=== PATIENT | male | born 1940 | race African-American/Black ===

== ENCOUNTER 2019-05-02 11:35 | Inpatient (IN) | payer OTHER ==
[~2019-05-02] VITALS: Ht 182.9 cm; Wt 78.2 kg
[2019-05-02 11:35] VITALS: BP_SYST 147
--- NOTE | 2019-05-02 11:35 | NUR ---
BROUGHT IN BY [facility], PLACED IN BED #1 AND TRIAGED.REPORT GIVEN TO ELIZABETH
--- NOTE | 2019-05-02 11:55 | NUR ---
PATIENT CAME IN FROM [facility]. PATIENT SHARMIN IN FOR LOW HGB AT 7.5. PATIENT DENEIS PAIN. PATIENT STATES HE GETS DIZZY SOME TIMES WHEN MOVED FAST. PATIENT ALERT AND ORIENTED X3. PATIENT HAS HISTORY OF CVA WITH LEFT SIDED WEAKNESS. PAIENT HAS POND HANGING TO GRAVITY. PATIENT DENIES SOB AND NAUSEA AND VOMITING.
[2019-05-02] MEDS ORDERED: NACL 0.9% 1,000 ML IV ONE (12:00)
[2019-05-02] MEDS ORDERED: NACL 0.9% 1,000 ML IV SCH (12:00)
--- NOTE | 2019-05-02 12:05 | NUR ---
PATIENT GETTING X RAY IN BED.
[2019-05-02 12:44] LABS: BASOPHILS % (AUTO) 0.3 % (0.0-2.0); EOSINOPHILS # (AUTO) 0.2 K/uL (0.0-0.4); EOSINOPHILS % (AUTO) 1.8 % (0.0-4.0); HEMATOCRIT 25.4 % (36-54); HEMOGLOBIN 8.4 g/dL (14.0-18.0); LYMPHOCYTES # (AUTO) 6.1 K/uL (1.0-5.5); LYMPHOCYTES % (AUTO) 56.1 % (20.5-51.5); MEAN CORPUSCULAR HEMOGLOBIN 30 pg (27-31); MEAN CORPUSCULAR HGB CONC 33 % (32-36); MEAN CORPUSCULAR VOLUME 92 fL (79.0-98.0); MONOCYTES # (AUTO) 0.8 K/uL (0.0-1.0); MONOCYTES % (AUTO) 7.6 % (1.7-9.3); NEUTROPHILS # (AUTO) 3.7 K/uL (1.8-7.7); PLATELET COUNT (AUTO) 295 K/uL (130-430); RED BLOOD CELL COUNT(AUTO) 2.76 MIL/uL (4.2-6.2); RED CELL DISTRIBUTION WIDTH 18.2 % (9.0-15.0); WHITE BLOOD COUNT (AUTO) 10.8 K/uL (4.8-10.8)
[2019-05-02 12:56] LABS: ANION GAP 7 (5-15); CALCIUM 9.8 mg/dL (8.4-11.0); CHLORIDE 104 mmol/L (98-107); CREATININE 2.15 mg/dL (0.55-1.30); GLUCOSE 113 mg/dL (70-99); POTASSIUM 3.9 mmol/L (3.5-5.1); SODIUM SERUM 133 mmol/L (136-145); UREA NITROGEN, BLOOD 38 mg/dL (8-21)
[2019-05-02 12:57] LABS: NEUTROPHILS % (AUTO) 34.2 % (40.0-70.0)
[2019-05-02 13:00] LABS: INR 1.1 (0.80-1.20); PROTHROMBIN TIME 11.5 SECS (9.5-12.5)
[2019-05-02 13:04] LABS: ALANINE AMINOTRANSFERASE 17 U/L (12-78); ALBUMIN 2.3 g/dL (3.4-4.8); ASPARTATE AMINOTRANSFERASE 26 U/L (10-37); TOTAL BILIRUBIN 0.6 mg/dL (0.0-1.0)
--- NOTE | 2019-05-02 13:05 | NUR ---
PATIENT DRN PER ALIDA THAT WAS SENT WITH PATIENT FROM FACILITY.
--- NOTE | 2019-05-02 13:12 | NUR ---
PATIENT REFUSING CATHETER CHANGE BECAUSE PATIENT STATES "IT WAS JUST CHANGED." CALLED FACILITY AND JARED NURSE STATES IT WAS CHANGED 2 DAYS.
[2019-05-02] MEDS ORDERED: DARB60VI IJ (13:28)
[2019-05-02] MEDS ORDERED: DIVA250T PO (13:28)
[2019-05-02] MEDS ORDERED: ACET325T53 PO (13:28)
[2019-05-02] MEDS ORDERED: TRAMADOL PO (13:28)
[2019-05-02] MEDS ORDERED: RIVA15TA PO (13:28)
[2019-05-02] MEDS ORDERED: METO-540 PO (13:28)
[2019-05-02] MEDS ORDERED: SSREG SUBCUT (13:28)
[2019-05-02] MEDS ORDERED: DOCU-144 PO (13:28)
[2019-05-02] MEDS ORDERED: HYDR-3917 PO (13:28)
[2019-05-02] MEDS ORDERED: FERR140T2 PO (13:28)
[2019-05-02] MEDS ORDERED: VITA1CAP PO (13:28)
[2019-05-02] MEDS ORDERED: NOR10 PO (13:28)
[2019-05-02] MEDS ORDERED: LORA-259 PO (13:28)
--- NOTE | 2019-05-02 13:28 | NUR ---
Medication reconciliation completed with information provided by [facility]. Any prior medication reconciliation on file was reviewed and corrected.
--- NOTE | 2019-05-02 14:48 | NUR ---
# 20 gauge angiocath placed to RIGHT FOOT AFTER MULTIPLE ATTEMPTS FROM RN'S. Use of asceptic technique. Opsite placed over site. Blood return noted. Blood for lab drawn from site. Flushed with 10 cc of normal saline. No evidence of infiltration noted. Patient tolerated well.
--- NOTE | 2019-05-02 15:40 | NUR ---
DR GONSALES AT BEDSIDE FOR EVALUATION
--- NOTE | 2019-05-02 17:10 | NUR ---
PATIENT RESTING IN BED WITH NO SIGNS OF DISTRESS. PATIENT GETTING ANXIOUS AND WANTS TO BE ADMITTED. WAITING FOR DR TO CALL BACK FOR ORDERS. WILL CONTINUE TO MONITOR.
--- NOTE | 2019-05-02 17:46 | NUR ---
Patient will be admitted to care of DR TSANG. Admitted to TELE unit. Belongings list completed. Summary report printed. Report will be given at bedside.
--- NOTE | 2019-05-02 17:50 | NUR ---
WAITING FOR TELE TO GIVE BED SO PATIENT CAN BE TRANSFERED.
--- NOTE | 2019-05-02 18:11 | NUR ---
Transfer to TELE via ACLS protocol. Licensed nurse present. IV present no signs or symptoms of infiltration.
--- NOTE | 2019-05-02 18:20 | NUR ---
REPORT GIVEN TO ROSALIA ESPINAL ON TELE.
--- NOTE | 2019-05-02 18:25 | NUR ---
Admission Note Received patient from ER with diagnosis of ANEMIA, KIDNEY FAILURE, R/O GI BLEED.. Initial Plan of Care discussed-patient verbalized understanding. Family at bedside. Oriented to room, call light, pain management and safety.
--- NOTE | 2019-05-02 18:42 | NUR ---
Initial Note-Received pt from ER. Pt is confused. IV bolus running on right foot. Pt has weakness on left side. Will endorse pt care to oncoming shift mechanic
--- NOTE | 2019-05-02 19:37 | NUR ---
CONSULTATION PAGED/CALLED Reason for Consultation:ELEVATED TROP Person Who was Notified: MAIRA Consulting Physician: DR. DE LEON Continuity Editor Specialty: Ordering Physician: DR. TSANG
--- NOTE | 2019-05-02 19:44 | NUR ---
CONSULTATION PAGED/CALLED Reason for Consultation: R/O GI BLEED Person Who was Notified: WEI Consulting Physician: DR SALEH. (DR. GARCIA IS LEAD RIDER ) Drier Tender Specialty: Ordering Physician: DR. TSANG
[2019-05-02 20:08] VITALS: BP_SYST 152
[2019-05-02 20:15] VITALS: BP_SYST 145
[2019-05-02] MEDS: 0.45% NACL 1,000 ML IV SCH (20:23)
--- NOTE | 2019-05-02 20:23 | NUR ---
IVF PATIENT STARTED ON IVF ORDERED. IV LINE INTACT ON RT FOOT. PENILE SHAFT WOUND AND SACRAL/BUTTOCKS EXCORIATION PICTURE TAKEN AND RECORDED. VITAL SIGNS STABLE. PATIENT INSTRUCTED OF CALL LIGHT USE. BED IN LOWEST LOCKED POSITION WITH ALARM ON.
--- NOTE | 2019-05-02 20:52 | NUR ---
PAGED: PAGED DR. TSANG REGARDING ORDERS. SPOKE WITH WALESKA.
[2019-05-02] MEDS ORDERED: ACETAMINOPHEN 325 MG TABLET PO PRN (21:45)
--- NOTE | 2019-05-02 23:40 | NUR ---
GI CONSULT DR. GARCIA CALLED BACK FOR GI CONSULT. ORDERED TO KEEP PATIENT NPO AFTER MIDNIGHT.
[2019-05-03 00:17] VITALS: BP_SYST 150
--- NOTE | 2019-05-03 00:50 | NUR ---
ROUNDS PATIENT RESTING IN BED. BREATHING UNLABORED. IVF INFUSING. CALL LIGHT WITH IN REACH.
--- NOTE | 2019-05-03 01:45 | NUR ---
CONSULTATION PAGED/CALLED Reason for Consultation: PENILE WOUND Person Who was Notified: JOSE Consulting Physician: DR. KELLER Tombstone Polisher Specialty: ID Ordering Physician: DR. TSANG
--- NOTE | 2019-05-03 03:00 | NUR ---
ID CONSULT DR. LAQUITA KELLER MAKING ROUNDS FOR ID CONSULT WITH ORDERS MADE NOTED AND CARRIED OUT.
[2019-05-03] MEDS ORDERED: ACETAMINOPHEN 325 MG TABLET PO PRN (03:45)
[2019-05-03] MEDS ORDERED: LORazepam 1 MG TABLET PO PRN (03:45)
[2019-05-03] MEDS ORDERED: traMADol HCL HCL 50 MG TABLET (ULTRAM) PO PRN (03:45)
[2019-05-03] MEDS ORDERED: INSULIN REGULAR, HUMAN 100 UNITS/ML, 10 ML VIAL (humuLIN R) SUBCUT PRN ×2 (03:45→04:00)
--- NOTE | 2019-05-03 06:06 | NUR ---
BLOOD SUGAR PATIENT BLOOD SUGAR 78. MILK WITH PACKETS OF SUGAR GIVEN TOLERATED.
--- NOTE | 2019-05-03 06:43 | NUR ---
CLOSING NOTES PATIENT RESTING IN BED. NO C/O PAIN AT THIS TIME. URINE SPECIMEN SEND TO LAB FOR UA &C/S. PATIENT NEEDS ATTENDED. IVF INFUSING WITH IV LINE INTACT. BED IN LOWEST LOCKED POSITION WITH ALARM ON. CALL LIGHT WITH IN REACH.
[2019-05-03 07:19] LABS: BILIRUBIN,URINE NEGATIVE (NEGATIVE); BLOOD, URINE 2+ (NEGATIVE); CLARITY/URINE HAZY (CLEAR); COLOR,URINE YELLOW (YELLOW); GLUCOSE,URINE NEGATIVE (NEGATIVE); KETONES,URINE NEGATIVE (NEGATIVE); LEUKOCYTE ESTERASE ,URINE 3+ (NEGATIVE); NITRITE, URINE POSITIVE (NEGATIVE); PROTEIN URINE 2+ (NEGATIVE); UROBILINOGEN,URINE 0.2 (0.2-1.0)
[2019-05-03] MEDS ORDERED: DEXTROSE 50%-WATER 50 ML DISP.SYRIN IVP PRN (07:30)
[2019-05-03] MEDS ORDERED: GLUCOSE 15 GM GEL (in 37.5 GM TUBE) PO PRN (07:30)
[2019-05-03] MEDS ORDERED: D5W 1,000 ML IV PRN (07:30)
[2019-05-03 08:00] VITALS: BP_SYST 120
--- NOTE | 2019-05-03 08:00 | NUR ---
Patient is A/Ox4. With F/C draining yellow urine. IV on the right leg, #20. SR on monitor. Call light in place, bed locked at the lowest position, will continue to monitor.
[2019-05-03 08:03] LABS: BACTERIA,URINE MANY /HPF (None Seen); WBC,URINE >100 /HPF (0-3)
[2019-05-03 08:37] LABS: BASOPHILS % (AUTO) 0.3 % (0.0-2.0); EOSINOPHILS # (AUTO) 0.2 K/uL (0.0-0.4); HEMATOCRIT 22.8 % (36-54); HEMOGLOBIN 7.7 g/dL (14.0-18.0); LYMPHOCYTES # (AUTO) 5.6 K/uL (1.0-5.5); LYMPHOCYTES % (AUTO) 52.5 % (20.5-51.5); MEAN CORPUSCULAR HEMOGLOBIN 31 pg (27-31); MEAN CORPUSCULAR HGB CONC 34 % (32-36); MEAN CORPUSCULAR VOLUME 92 fL (79.0-98.0); MONOCYTES # (AUTO) 0.7 K/uL (0.0-1.0); MONOCYTES % (AUTO) 6.7 % (1.7-9.3); NEUTROPHILS # (AUTO) 4.1 K/uL (1.8-7.7); PLATELET COUNT (AUTO) 263 K/uL (130-430); RED BLOOD CELL COUNT(AUTO) 2.48 MIL/uL (4.2-6.2); RED CELL DISTRIBUTION WIDTH 19.4 % (9.0-15.0); WHITE BLOOD COUNT (AUTO) 10.7 K/uL (4.8-10.8)
[2019-05-03 08:43] LABS: NEUTROPHILS % (AUTO) 38.5 % (40.0-70.0)
[2019-05-03 08:44] LABS: ANION GAP 4 (5-15); CALCIUM 9.6 mg/dL (8.4-11.0); CHLORIDE 108 mmol/L (98-107); CREATININE 2.05 mg/dL (0.55-1.30); GLUCOSE 99 mg/dL (70-99); POTASSIUM 3.8 mmol/L (3.5-5.1); SODIUM SERUM 135 mmol/L (136-145); UREA NITROGEN, BLOOD 34 mg/dL (8-21)
[2019-05-03 08:53] LABS: HDL CHOLESTEROL 39 mg/dL (>45); LDL CHOLESTEROL 63 mg/dL (<100); TRIGLYCERIDES 95 mg/dL (30-150)
[2019-05-03 08:59] LABS: ALANINE AMINOTRANSFERASE 23 U/L (12-78); ALBUMIN 2.1 g/dL (3.4-4.8); THYROID STIMULATING HORMONE 2.67 uIu/mL (0.36-3.74); TOTAL BILIRUBIN 0.7 mg/dL (0.0-1.0)
[2019-05-03] MEDS: DOCUSATE SODIUM 100 MG CAPSULE PO SCH ×2 (09:00→21:16)
[2019-05-03] MEDS: amLODIPine BESYLATE 10 MG TABLET PO SCH (09:00)
[2019-05-03] MEDS: VITAMIN B COMPLEX 1 CAP/TAB PO SCH (09:00)
[2019-05-03] MEDS: FERROUS SULFATE 325 MG TABLET.DR PO SCH ×3 (09:00→21:16)
[2019-05-03] MEDS: DIVALPROEX SODIUM 125 MG CAP.(DEPAKOTE SPRINKLE) PO SCH ×2 (09:00→21:16)
[2019-05-03] MEDS: RIVAROXABAN 15 MG TABLET PO SCH (09:00)
[2019-05-03 09:04] LABS: ASPARTATE AMINOTRANSFERASE 41 U/L (10-37)
[2019-05-03 09:05] LABS: CHOLESTEROL 118 mg/dL (<200)
--- NOTE | 2019-05-03 09:50 | NUR ---
Nutrition Update Jose J Scale 14 noted. Pt admitted for anemia, r/o GI bleed, renal failure. Diet: NPO + 2 gm Na + CCHO (3 active, separate diet orders) BMI: 23.1 kg/m2 RD to follow per nutrition care standards.
--- NOTE | 2019-05-03 10:40 | NUR ---
CONSULTATION PAGED/CALLED Reason for Consultation: ELEVATED TROPONIN Person Who was Notified: SPOKE TO Consulting Physician: Switchboard Operator Receptionist Specialty: CARDIO Ordering Physician:
--- NOTE | 2019-05-03 12:00 | NUR ---
BS 82. No coverage is needed.
[2019-05-03] MEDS ORDERED: PANTOPRAZOLE SODIUM 40 MG TAB PO ONE (12:15)
[2019-05-03 12:38] VITALS: BP_SYST 145
--- NOTE | 2019-05-03 12:42 | NUR ---
Patient begins blood transfusion BT INITIATION: Consent signed by patient agreeing to administration of blood. Blood has been type and crossmatched. Blood sent from blood bank. Information on unit of blood checked against patient wristband at bedside by two nurses. All information matches. Patient or responsible republican informed of potential complications associated with blood transfusion. Informed of possible transfusion reaction symptoms. Aware of need to notify nurse at once of itching, shortness of breath, flushing, feeling of impending doom, or other symptoms not previously present. Vital signs taken within 5 minutes prior to initiation of transfusion. RN will remain with patient for first 15 minutes of transfusion at which time vital signs will be re-assessed.
[2019-05-03] MEDS ORDERED: LEVOFLOXACIN 250 MG TABLET PO ONE (14:15)
[2019-05-03] MEDS ORDERED: FUROSEMIDE 40 MG/4 ML VIAL IVP ONE (14:30)
[2019-05-03] MEDS: METOPROLOL SUCCINATE 25 MG TAB.SR.24H (TOPROL XL) PO SCH (14:42)
--- NOTE | 2019-05-03 14:48 | NUR ---
Dietitian Recommendations * Recommend continuing full liquid diet (ONS Ensure Enlive TID comes standard w/ full liquid diets; provides additional 1050 kcal/day, 60 gm protein/day) * Encourage PO intake. * Consider advance to CCHO, 2gm sodium diet if/when medically appropriate. MIRTHA, Lead Technical Architect Please refer to Nutrition Assessment for details. Signed: 05/03/19 at 1449 by Anneliese BENZ <Co-Signature Required> Co-Signed: 05/03/19 at [address] Addendum: 05/03/19 at 1449 by Anneliese BENZ Amended: Links added.
--- NOTE | 2019-05-03 15:40 | NUR ---
Blood transfusion completed. Patient is in no signs of distress, V/S is stable.
--- NOTE | 2019-05-03 15:45 | NUR ---
BT INITIATION: Consent signed per PATIENT agreeing to administration of blood. Blood has been type and crossmatched. Blood sent from blood bank. Information on unit of blood checked against patient wristband at bedside by two nurses. All information matches. Patient or responsible alliance party informed of potential complications associated with blood transfusion. Informed of possible transfusion reaction symptoms. Aware of need to notify nurse at once of itching, shortness of breath, flushing, feeling of impending doom, or other symptoms not previously present. Vital signs taken within 5 minutes prior to initiation of transfusion. RN will remain with patient for first 15 minutes of transfusion at which time vital signs will be re-assessed.
[2019-05-03 16:00] VITALS: BP_SYST 156
--- NOTE | 2019-05-03 16:00 | NUR ---
PATIENT IS TOLERATING BLOOD TRANSFUSION WITHOUT DISTRESS. WILL CONTINUE TO MONITOR. V/S IS STABLE.
--- NOTE | 2019-05-03 17:49 | NUR ---
WOUND EVALUATION: Wound Consult received from Dr. Monteiro. Thank you, Dr. Monteiro, for the consult. Patient received in a Jacinda Bed, awake, alert, and oriented. Patient is unable to turn independently. Jose J Score is a 14. Past Medical History: cancer, diabetes, hypertension. Recent Labs: WBC 10.7, RBC 2.48, Hgb 7.7, Hct 22.8, albumin 2.1, BUN 34, Creatinine 2.05. Microbiology: urine culture pending, MRSA screen pending. Intrinsic factors that delay wound healing: hypertension, diabetes. Extrinsic factors that delay wound healing: limited mobility. Wound Assessment: 1. Sacrum Incontinence-associated dermatitis with small opening, present on admission. Opening is 100% red. No odor, no drainage. Victoria-wound intact, dry, flaky. Open area measures 0.3 cm x 0.2 cm. 2. Bilateral Buttocks Incontinence-associated dermatitis. No odor, no drainage. Victoria-wound intact with dry scaly skin. Recommend: Cleanse areas with mild soap and water. Place moisture barrier cream onto buttocks and sacrum. Apply hydrogel to open areas not covered by moisture barrier cream. Cover with foam dressing. Perform wound care daily, and as needed for dressing soiling or dislodgement. Also recommend: Reposition patient every 2 hours with pillow support and off-load pressure areas with pillows for pressure re-distribution. Offload, elevate and float bilateral heels with pillows. Perform skin care and monitor skin integrity Q shift. Use moisture barrier cream on buttocks and other moisture susceptible areas QID and as needed for soiling. Place patient on a low air-loss mattress.
[2019-05-03 19:00] VITALS: BP_SYST 148
--- NOTE | 2019-05-03 19:00 | NUR ---
BLOOD TRANSFUSION IS COMPLETED. PATIENT TOLERATED WITHOUT DISTRESS. REPORT IS ALSO GIVEN AT BEDSIDE TO THE ONCOMING SHIFT.
--- NOTE | 2019-05-03 19:15 | NUR ---
change of shift.pt.presents blood transfusion;2/2 units in progress.pt's iv access;location;rt.foot.iv access assessment; intact;patent;absent infiltration/inflammation.pt.presents akhtar catheter;intact;patent;urine content present.pt.presents quiescent affect;calm,arousable.call light/telephone w/in reach of the pt.
[2019-05-03 20:00] VITALS: BP_SYST 148
--- NOTE | 2019-05-03 20:00 | NUR ---
pt.assessed.v/s assessed.values w/in normal limits.pt.presents quiescent affect;calm.no c/o pain,nausea.i have assessed the iv access;intact;patent:absent infiltration/inflammation.the post blood transfusion:ns-flush infusing.i have assessed the akhtar catheter;intact;patent;urine content present.pt.assessed for cleanliness.pt.repositioned.general status stable.respiratory status stale.i have apprised the pt.that i may provide snacks /beverages w/in the shift.no requests posited @this hour.call light/ telephone placed w/in reach of the pt.
--- NOTE | 2019-05-03 20:30 | NUR ---
i have assessed the blood glucose;value;121mg/dl.i have apprised the pt.of the value.
--- NOTE | 2019-05-03 21:00 | NUR ---
2100p medications administered.pt.capable to consume medications whole.i have noted the pt.is receiving the administration:goyo.seizure precautions noted and placed;bed side rails padded applied. Addendum: 05/04/19 at 0348 by Jemal Phillips RN i have removed the post blood transfusion ns-flush.i have changed the iv fluids bag;continued w/the maintanance iv fluids;45ns.
[2019-05-03] MEDS: 0.45% NACL 1,000 ML IV SCH ×2 (21:15→21:27)
--- NOTE | 2019-05-03 22:00 | NUR ---
pt.assessed.pt.present quiescent affect;calm,somnolent.pt.assessed for cleanliness.pt.repositioned.iv access intact;patent;iv fluids infusing. akhtar catheter intact;patent;urine content present.general status stable.respiratory status stable;unlabored.call light/telephone placed w/in the reach of the pt.
--- NOTE | 2019-05-03 22:30 | NUR ---
i have collected the urine sample;sent to the lab.
--- NOTE | 2019-05-04 | NUR ---
pt.assessed.v/s assessed;value w/in normal limits.pt.presents quiescent affect;calm,somnolent.pt.assessed for cleanliness.pt.repositioned.iv access:intact;patent;iv fluids infusing. akhtar catheter assessed;intact;patent;urine content presents general status stable.respiratory status stable.call light/telephone placed w/in reach of the pt.
[2019-05-04 00:51] VITALS: BP_SYST 155
--- NOTE | 2019-05-04 00:52 | NUR ---
paged paged for Dr Doc Sr, dialed . s/w Gwen.
--- NOTE | 2019-05-04 02:00 | NUR ---
pt.assessed.pt.presents quiescent affect;calm,somnolent.pt.assessed for cleanliness.pt.repositioned.iv access;intact;patent; iv fluids infusing. akhtar catheter assessed;intact;patent;urine content present.general status stable.respiratory status stable.call light/telephone placed w/in reach of the pt.
--- NOTE | 2019-05-04 04:00 | NUR ---
pt.assessed.pt.presents quiescent affect;calm,somnolent.iv access;intact;patent absent infiltration.inflammation.iv fluids infusing. akhtar catheter intact;patent;urine content present.general status stable.respiratory status stable;unlabored.pt.assessed for cleanliness.pt.repositioned.call light/telephone placed w/in reach of the pt.
--- NOTE | 2019-05-04 06:35 | NUR ---
pt.assessed.pt.was to submit to lab draws this am;pt.refused.i conveyed to the pt.the necessity for the lab values.pt.refused. blood glucose attempt was refused per the pt.to convey to md in am.pt.assessed for cleanliness.pt.repositioned.i v fluids intact; patent.absent infiltration/inflammation.akhtar catheter intact;patent;urine content present.pt.assessed for cleanliness.pt. repositioned.call light/telephone placed w/in reach of the pt.
--- NOTE | 2019-05-04 07:52 | NUR ---
OPENING NOTE RECEIVED PATIENT FROM COBBLER SOLE. PATIENT AWAKE IN BED. A/OX3. ROOM AIR. NO ACUTE DISTRESS. NO SOB. RESPIRATION EVEN AND UNLABORED. SKIN WARM AND DRY TO TOUCH. IV INTACT AND PATENT TO RIGHT FOOT; NO REDNESS/INFILTRATION NOTED. ANNALISA IVF ORDERED. POND CATH INTACT AND PATENT DRAINING YELLOW URINE. DISCUSSED PLAN OF CARE. ENCOURAGED PATIENT TO ALLOW SALES OPERATIONS MANAGER TO DO A BLOOD DRAW DUE TO HIGH TROPONIN; PATIENT STILL REFUSED AND WILL ATTEMPT AGAIN. BED IN LOW AND LOCKED POSITION. SIDERAIL UPX2. BED ALARM ON. CALL LIGHT IN REACH. CONT TO MONITOR PATIENT SEEN AND EXAMINED BY AT BEDSIDE
[2019-05-04 08:00] VITALS: BP_SYST 154
[2019-05-04] MEDS: PANTOPRAZOLE SODIUM 40 MG TAB PO SCH (08:19)
[2019-05-04] MEDS: FERROUS SULFATE 325 MG TABLET.DR PO SCH ×3 (08:19→20:50)
[2019-05-04] MEDS: DIVALPROEX SODIUM 125 MG CAP.(DEPAKOTE SPRINKLE) PO SCH ×3 (08:19→21:00)
[2019-05-04] MEDS: VITAMIN B COMPLEX 1 CAP/TAB PO SCH (08:19)
[2019-05-04] MEDS: FUROSEMIDE 40 MG/4 ML VIAL IVP SCH (08:19)
[2019-05-04] MEDS: METOPROLOL SUCCINATE 25 MG TAB.SR.24H (TOPROL XL) PO SCH (08:20)
[2019-05-04] MEDS: DOCUSATE SODIUM 100 MG CAPSULE PO SCH ×2 (08:20→20:49)
[2019-05-04] MEDS: amLODIPine BESYLATE 10 MG TABLET PO SCH (08:20)
[2019-05-04] MEDS: RIVAROXABAN 15 MG TABLET PO SCH (08:21)
[2019-05-04 08:33] LABS: BASOPHILS % (AUTO) 0.2 % (0.0-2.0); EOSINOPHILS # (AUTO) 0.2 K/uL (0.0-0.4); EOSINOPHILS % (AUTO) 1.7 % (0.0-4.0); HEMATOCRIT 30.6 % (36-54); HEMOGLOBIN 10.2 g/dL (14.0-18.0); LYMPHOCYTES # (AUTO) 5.1 K/uL (1.0-5.5); LYMPHOCYTES % (AUTO) 50.7 % (20.5-51.5); MEAN CORPUSCULAR HEMOGLOBIN 30 pg (27-31); MEAN CORPUSCULAR HGB CONC 33 % (32-36); MEAN CORPUSCULAR VOLUME 90 fL (79.0-98.0); MONOCYTES # (AUTO) 0.8 K/uL (0.0-1.0); MONOCYTES % (AUTO) 7.6 % (1.7-9.3); NEUTROPHILS % (AUTO) 39.8 % (40.0-70.0); PLATELET COUNT (AUTO) 231 K/uL (130-430); RED BLOOD CELL COUNT(AUTO) 3.42 MIL/uL (4.2-6.2); WHITE BLOOD COUNT (AUTO) 10.2 K/uL (4.8-10.8)
--- NOTE | 2019-05-04 08:33 | NUR ---
meds ALL DUE MEDS ADMINISTERED ORDERED; ANNALISA WELL. TEACHING FOR MEDICATION AND ASE DONE. ALL NEEDS MET. CONT TO MONITOR. CALL LIGHT IN REACH
[2019-05-04 08:35] LABS: ANION GAP 7 (5-15); CALCIUM 9.6 mg/dL (8.4-11.0); CHLORIDE 106 mmol/L (98-107); CREATININE 1.99 mg/dL (0.55-1.30); GLUCOSE 84 mg/dL (70-99); POTASSIUM 4.1 mmol/L (3.5-5.1); SODIUM SERUM 136 mmol/L (136-145); UREA NITROGEN, BLOOD 34 mg/dL (8-21)
[2019-05-04 08:43] LABS: ALANINE AMINOTRANSFERASE 30 U/L (12-78); ASPARTATE AMINOTRANSFERASE 43 U/L (10-37); TOTAL BILIRUBIN 0.7 mg/dL (0.0-1.0)
[2019-05-04] MEDS: 0.45% NACL 1,000 ML IV SCH (09:17)
[2019-05-04] MEDS: LEVOFLOXACIN 250 MG TABLET PO SCH (09:17)
--- NOTE | 2019-05-04 09:25 | NUR ---
critical troponin Spoke to Dr.Prakash Sr regarding critical lab; troponin 7.261. MD noted troponin trending up. No new order at this time. MD will come to see patient and will consult with .
--- NOTE | 2019-05-04 09:26 | NUR ---
STOOL SAMPLE COLLECTED AND TAKEN TO LAB
--- NOTE | 2019-05-04 10:53 | NUR ---
note PATIENT RESTING IN BED WATCHING TV. STABLE. DENIES ANY PAIN AT THIS TIME. ALL NEEDS MET. CALL LIGHT IN REACH. CONT TO MONITOR. AND DAUGHTER VISITING AT BEDSIDE
--- NOTE | 2019-05-04 11:20 | NUR ---
DR. GUILLERMO KELLER SEEN AND EXAMINED PATIENT AT BEDSIDE. ORDERED TO DISCONTINUE XARELTO AND TO START HEPARIN DRIP PER PHARMACY PROTOCOL; ORDERS NOTED AND CARRIED OUT. CONT TO MONITOR Addendum: 05/04/19 at 1816 by Rosa Maria Alvarado RN DID NOT WANT A BOLUS OF HEPARIN DUE TO PATIENT ALREADY RECEIVED A DOSE OF XARELTO TODAY. OKAY TO START HEPARIN DRIP TODAY PER
[2019-05-04] MEDS ORDERED: HEPARIN SODIUM,PORCINE 3000 UNITS/0.6 ML BOLUS IVP PRN (12:00)
[2019-05-04] MEDS ORDERED: HEPARIN 25,000 UNITS/D5W 250ML 250 ML IV PRN (12:00)
[2019-05-04] MEDS ORDERED: HEPARIN SODIUM,PORCINE 2000 UNITS/0.4 ML BOLUS IVP PRN (12:00)
[2019-05-04 12:22] VITALS: BP_SYST 137
--- NOTE | 2019-05-04 13:45 | NUR ---
NOTE PATIENT IS AWAKE IN BED. STABLE. DENIES ANY PAIN. NO ACUTE DISTRESS. NO SOB. SKIN WARM AND DRY TO TOUCH. TOLERATING HEPARIN DRIP ORDERED. ALL NEEDS MET. CONT TO MONITOR.
--- NOTE | 2019-05-04 15:06 | NUR ---
INFORMED PATIENT WAS PUT ON HEPARIN DRIP BY . PATIENT IS ON IVF HYDRATION AND IS A HARD STICK. PATIENT IS ON A FULL LIQUID DIET. OKAY TO D/C HYDRATION AT THIS TIME
--- NOTE | 2019-05-04 15:15 | NUR ---
NOTE PATIENT IS STABLE. DENIES ANY PAIN. NO ACUTE DISTRESS. SKIN WARM AND DRY TO TOUCH. IV INTACT AND PATENT. POND CATH INTACT AND DRAINING YELLOW URINE. ALL NEEDS MET. CALL LIGHT IN REACH. CONT TO MONITOR
--- NOTE | 2019-05-04 16:22 | NUR ---
DR. LAQUITA KELLER REPORTED TO THAT PATIENT IS POSITVE MRSA NARES RECEIVED NEW ORDER FOR BACTROBAN BID X5DAYS AND PLACE PATIENT ON CONTACT PRECAUTIONS; ORDER NOTED AND CARRIED. CONT TO MONITOR
[2019-05-04 16:48] VITALS: BP_SYST 161
--- NOTE | 2019-05-04 17:07 | NUR ---
NOTE PATIENT RESTING COMFORTABLY. NO ACUTE DISTRESS NOTED. NOTED RISE/FALL OF CHEST. SKIN WARM AND DRY TO TOUCH. ALL NEEDS MET .CONT TO MONITOR. CALL LIGHT IN REACH
--- NOTE | 2019-05-04 18:44 | NUR ---
CLOSING NOTE PATIENT IS AWAKE IN BED WATCHING TV AND EATING DINNER. STABLE. DENIES ANY PAIN. NO ACUTE DISTRESS. NO SOB. RESP EVEN AND UNLABORED. SKIN WARM AND DRY TO TOUCH. IV INTACT AND PATENT TO RIGHT FOOT; NO S/SX REDNESS/INFILTRATION NOTED. PATIENT CONT ON HEPARIN DRIP 10CC/HR ORDERED; ANNALISA WELL. NO S/SX ABNORMAL DISCOLORATION NOTED. POND CATH INTACT AND PATENT DRAINING YELLOW URINE. CONT CONTACT PRECAUTIONS FOR POSITIVE MRSA NARES. KEPT CLEAN AND DRY. ALL NEEDS MET. CALL LIGHT IN REACH. BED IN LOW AND LOCKED POSITION. SIDERAIL UPX2. CONT TO MONITOR. WILL ENDORSE TO ONCOMING SHIFT
--- NOTE | 2019-05-04 19:10 | NUR ---
CHANGE OF SHIFT; pt. resting when received, in no distress. on contact isolation for MRSA of nares. Heparin drip @ 10 cc/hr = 1000 units/hr. safety measures in place, call ligth within reach. will reassess later.
--- NOTE | 2019-05-04 20:15 | NUR ---
NOTES: pt. sleeping when checked, awakened, alert and oriented. IV Heparin @ 10 cc/hr via rt. foot. noted some swelling on lower ext. aamir. left foot. no c/o pain nor shortness of breath. noted left sided weakness with history of CVA 2011. on cardiac pattern and shows sinus rhythm with 1st degree AV block. akhtar cath to OSD with yellow urine output., noted redness on his penis. observed on contact isolation for MRSA nares, pt. aware. call light within risk.bed alarm on.
[2019-05-04 20:30] VITALS: BP_SYST 139
[2019-05-04] MEDS ORDERED: MUPIROCIN 1 GM OIN.PF.APP NS SCH (21:00)
--- NOTE | 2019-05-04 21:30 | NUR ---
NOTES: offered to reposition but wants to stay on his back and refused Depakote. tolerated oral meds. waiting for PTT result.
--- NOTE | 2019-05-04 22:29 | NUR ---
NOTES: called lab, following up on PTT result sched @ 1930, in process on the computer and checked by laborer electroplatingjuan Lacy and it was never drawn, stat APTT ordered. anne Lacy here and pt. refused lab draw, said he will think about it even thou explained the need and importance of it. will page .
--- NOTE | 2019-05-04 22:45 | NUR ---
PAGED; PAGED ISRAEL MUELLER REGARDING REFUSAL OF PTT. SPOKE WITH AKBAR
--- NOTE | 2019-05-04 23:24 | NUR ---
SECOND PAGE: PAGED ISRAEL MUELLER REGARDING REFUSAL OF PTT. SPOKE WITH AKBAR
--- NOTE | 2019-05-04 23:35 | NUR ---
NOTES: Dr. Sr called back and informed him pt. refusal to draw blood for PTT. ordered to discontinue Heparin and resume Xarelto as previously ordered. informed pt.
[2019-05-05 00:45] VITALS: BP_SYST 137
--- NOTE | 2019-05-05 02:12 | NUR ---
NOTES: pt. sleeping at this time, cardiac pattern unchanged. continue to observe. refuse to turn at this time.
--- NOTE | 2019-05-05 04:30 | NUR ---
NOTES: checked pt., awakened when akhtar cath emptied by SIDE LASTER STAPLE, went back to sleep.
--- NOTE | 2019-05-05 05:31 | NUR ---
NOTES: awakened, complete am care done with jimbo care, incontinent of stool. moderate amt. of dark greenish soft pasty BM. repositioned to his side. IV lock intact. pt. more conversant. pt. needs attended. noted excoriated skin on sacral area and penile area, z guard cream applied. observe contact isolation for MRSA nares.
--- NOTE | 2019-05-05 06:42 | NUR ---
CLOSING NOTES; pt/ asleep, awakened ,checked BS 91, no distress. safety measures in place, call within reach. for further assistance.
--- NOTE | 2019-05-05 07:25 | NUR ---
OPENING NOTE PATIENT ASLEEP. EASILY AROUSABLE. ALERT AND ORIENTED. DENIES ANY PAIN. ROOM AIR. NO ACUTE DISTRESS. NO SOB. RESP EVEN AND UNLABORED. SKIN WARM AND DRY TO TOUCH. IV INTACT AND PATENT, SL. POND CATH INTACT AND PATENT DRAINING YELLOW URINE. BED IN LOW AND LOCK POSITION. SIDERAIL UP X3. BED ALARM ON. ALL NEEDS MET. CALL LIGHT IN REACH. CONT TO MONITOR. Addendum: 05/05/19 at 0731 by Rosa Maria Alvarado RN CONT CONTACT PRECAUTIONS FOR MRSA NARES
[2019-05-05 07:43] VITALS: BP_SYST 143
[2019-05-05] MEDS: DIVALPROEX SODIUM 125 MG CAP.(DEPAKOTE SPRINKLE) PO SCH ×2 (08:40→20:29)
[2019-05-05] MEDS: FUROSEMIDE 40 MG/4 ML VIAL IVP SCH (08:40)
[2019-05-05] MEDS: VITAMIN B COMPLEX 1 CAP/TAB PO SCH (08:41)
[2019-05-05] MEDS: amLODIPine BESYLATE 10 MG TABLET PO SCH (08:41)
[2019-05-05] MEDS: PANTOPRAZOLE SODIUM 40 MG TAB PO SCH (08:41)
[2019-05-05] MEDS: METOPROLOL SUCCINATE 25 MG TAB.SR.24H (TOPROL XL) PO SCH (08:42)
[2019-05-05] MEDS: FERROUS SULFATE 325 MG TABLET.DR PO SCH ×3 (08:43→20:28)
[2019-05-05] MEDS ORDERED: RIVAROXABAN 15 MG TABLET PO SCH (09:00)
[2019-05-05] MEDS: DOCUSATE SODIUM 100 MG CAPSULE PO SCH ×2 (09:03→20:29)
--- NOTE | 2019-05-05 09:05 | NUR ---
NOTE ALL DUE MEDS ADMINISTERED ORDERED, ANNALISA WELL. TEACHING DONE ON MEDICATION AND ASE. CONT TO MONITOR. CALL LIGHT IN REACH
--- NOTE | 2019-05-05 10:23 | NUR ---
note STOOL SAMPLE COLLECTED AND TAKEN TO LAB
[2019-05-05] MEDS: LEVOFLOXACIN 250 MG TABLET PO SCH (10:36)
[2019-05-05 12:20] VITALS: BP_SYST 136
--- NOTE | 2019-05-05 12:32 | NUR ---
SEEN AND EXAMINED BY AT BEDSIDE. PER MD PATIENT WILL BE TRANSFERRED TO [facility] FOR THE [facility] TOMORROW AFTERNOON. PATIENT MAY HAVE A LIGHT BREAKFAST AND TO BE NPO AFTER BREAKFAST. DISCONTINUE XARELTO PER .
--- NOTE | 2019-05-05 14:00 | NUR ---
NOTE AND DAUGHTER AT BEDSIDE. MADE AWARE OF PATIENT TRANSFER TO [facility] TOMORROW AFTERNOON FOR CARDIAC CATH. PATIENT STABLE. NO ACUTE DISTRESS. NO SOB. RESPIRATION EVEN AND UNLABORED. SKIN WARM AND DRY. CONT TO MONITOR
--- NOTE | 2019-05-05 15:45 | NUR ---
NOTE PATIENT RESTING IN BED WATCHING TV. DENIES ANY PAIN. NO ACUTE DISTRESS. NO SOB. SKIN WARM AND DRY TO TOUCH. ALL NEEDS MET. CONT TO MONITOR
[2019-05-05 16:15] VITALS: BP_SYST 147
--- NOTE | 2019-05-05 17:15 | NUR ---
PAGED DR. CARLIN/CRIT RESULT PAGED DR.DEVESH KELLER AT [phone] REGARDING CRITICAL RESULTS OF POSITIVE URINE CX FOR E.COLI/MDRO. AWAITING FOR CALL BACK
--- NOTE | 2019-05-05 17:26 | NUR ---
NOTE PATIENTS BLOOD GLUCOSE IS 137 mg/dL WITH NO COVERAGE NEEDED. NO S/SX HYPERGLYCEMIA/HYPOGLYCEMIA NOTED. SKIN WARM AND DRY TO TOUCH. CONT TO MONITOR. CALL LIGHT IN REACH
--- NOTE | 2019-05-05 18:36 | NUR ---
CLOSING NOTE PATIENT RESTING IN BED. EASILY AROUSABLE. DENIES ANY PAIN. NO ACUTE DISTRESS. NO SOB. RESPIRATION EVEN AND UNLABORED. SKIN WARM AND DRY TO TOUCH. IV TO RIGHT FOOT INTACT AND PATENT; NO REDNESS/INFILTRATION NOTED. POND CATH INTACT AND PATENT DRAINING YELLOW URINE. BED IN LOW AND LOCKED POSITION. SIDERAIL UPX3. BED ALARM ON. CALL LIGHT IN REACH. CONT TO MONITOR. WILL ENDORSE TO ONCOMING SHIFT. PATIENT TO BE TRANSFERRED TO [facility] TOMORROW FOR CARDIAC CATH IN AFTERNOON PER
--- NOTE | 2019-05-05 18:46 | NUR ---
DR. CARLIN SPOKE TO AND REPORT URINE CX RESULT POSITIVE ECOLI/MDRO AND ORGANISM IS RESISTANT TO LEVAQUIN. MD ORDER TO D/C LEVAQUIN AND TO START ROCEPHIN 1 GM QD; ORDER NOTED AND CARRIED OUT
--- NOTE | 2019-05-05 19:50 | NUR ---
OPENING NOTES Patient is resting in bed, alert and oriented x4, no acute respiratory distress. IV in Right foot 20g, patent, dressings c/d/i. Jean catheter in place, draining by gravity, bag off the floor, no kinks noted, yellow clear urine noted. Oriented patient to the room and plan of care. Bed alarm on, bed at lowest position, and call light within reach. Will continue to monitor.
[2019-05-05 20:00] VITALS: BP_SYST 133
[2019-05-05] MEDS: MUPIROCIN 2% TOPICAL OINTMENT 22 GM NS SCH (20:35)
[2019-05-05] MEDS: cefTRIAXone 1 GM IVPB PREMIX 50 ML IV SCH (22:19)
[2019-05-05] MEDS ORDERED: cefTRIAXone 1 GM IVPB PREMIX 50 ML IV ONE (22:21)
--- NOTE | 2019-05-05 22:38 | NUR ---
Patient is awake, watching television. No acute respiratory distress observed at this time. IV antibiotics administered. IV patent, dressings c/d/i. Safety precautions in place. Will continue to monitor.
--- NOTE | 2019-05-06 00:09 | NUR ---
IV antibiotics completed, tolerated well, no adverse reactions. IV dressings c/d/i. Patient is resting, no acute respiratory distress observed. Safety precautions in place. Will continue to monitor.
[2019-05-06 00:11] VITALS: BP_SYST 128
--- NOTE | 2019-05-06 02:10 | NUR ---
Patient is awake, alert. No respiratory distress observed. Patient provided with one warm blanket. Safety precautions in place. Will continue to monitor.
--- NOTE | 2019-05-06 04:06 | NUR ---
Patient is asleep, eyes closed. No signs of acute respiratory distress. Perineal care done, linens replaced. Jean catheter draining by gravity, no kinks. Safety precautions in place. Will continue to monitor.
--- NOTE | 2019-05-06 06:10 | NUR ---
CLOSING NOTES Patient resting in bed, HOB elevated. No signs of acute respiratory distress observed. Perineal care performed. Jean catheter draining per gravity, cloudy, yellow urine, no kinks, bag off of the floor. IV site, Right foot, 20 g, dressings c/d/i. Call light within reach, bed alarm on, and bed at lowest position. All needs met throughout shift. Will endorse care to oncoming shift.
[2019-05-06 06:44] LABS: ANION GAP 3 (5-15); CALCIUM 9.5 mg/dL (8.4-11.0); CHLORIDE 104 mmol/L (98-107); CREATININE 2.24 mg/dL (0.55-1.30); GLUCOSE 95 mg/dL (70-99); POTASSIUM 3.7 mmol/L (3.5-5.1); SODIUM SERUM 131 mmol/L (136-145); UREA NITROGEN, BLOOD 40 mg/dL (8-21)
--- NOTE | 2019-05-06 07:30 | NUR ---
OPENING NOTES: RECEIVED PATIENT FROM ANALYST SALES NURSE. PATIENT IS ASLEEP IN BED. NO SIGNS OF DISTRESS OR SHORTNESS OF BREATH NOTED. IV SITE IS PATENT WITH NO SIGNS OF INFILTRATION. POND CATHETER IS INTACT AND DRAINING BY GRAVITY. PATIENT IN STABLE CONDITION. SAFETY, FALL AND CONTACT PRECAUTIONS ARE IN PLACE. BED LOCKED IN LOWEST POSITION WITH CALL LIGHT IN REACH. WILL CONTINUE TO MONITOR PATIENT FOR ANY CHANGES.
[2019-05-06 08:10] VITALS: BP_SYST 145
[2019-05-06] MEDS: FUROSEMIDE 40 MG/4 ML VIAL IVP SCH (08:49)
[2019-05-06] MEDS: DIVALPROEX SODIUM 125 MG CAP.(DEPAKOTE SPRINKLE) PO SCH ×2 (08:50→22:17)
[2019-05-06] MEDS: MUPIROCIN 2% TOPICAL OINTMENT 22 GM NS SCH ×2 (08:50→22:17)
[2019-05-06] MEDS: DOCUSATE SODIUM 100 MG CAPSULE PO SCH ×2 (08:53→22:17)
[2019-05-06] MEDS: amLODIPine BESYLATE 10 MG TABLET PO SCH (08:53)
[2019-05-06] MEDS: FERROUS SULFATE 325 MG TABLET.DR PO SCH ×3 (08:53→22:17)
[2019-05-06] MEDS: VITAMIN B COMPLEX 1 CAP/TAB PO SCH (08:53)
[2019-05-06] MEDS: METOPROLOL SUCCINATE 25 MG TAB.SR.24H (TOPROL XL) PO SCH (08:54)
[2019-05-06] MEDS: PANTOPRAZOLE SODIUM 40 MG TAB PO SCH (08:54)
--- NOTE | 2019-05-06 10:18 | NUR ---
Nutrition F/U Admitting Diagnosis: UTI, Penile Ulcer, Hypospadias, HTN, CKD vs STEPHEN on CKD, H/O CVA, Anemia, DM, Stage I Sacral Decub Ulcer RD reviewed pt's current EMR including diet Hx, physician notes, nursing notes, pertinent labs/meds/procedures, care trends and care activity. Current Diet Order: Full Liquid diet x 3 days Subjective information: Pt seen sleeping in bed. Per bed huddle discussion, pt was supposed to be transferred to [facility], but was cancelled. Per EMR, pt has been tolerating full liquid diet, PO intake record shows: 05/05: 83% average of 3 meals, 05/04: 58% average of 3 meals. Pt may benefit from advancement of diet and order for CCHO diet as pt has H/O DM. Current PO intake: Good (83%) Estimated Energy Expenditure (kcals/day) 2727-4727 kcal/day (30-35 kcal/day IBW for wound healing/CA) Estimated Protein Required (g/day) 62-122 gm/day (0.8-1.5 gm/day IBW for renal failure/wound healing/CA) Estimated Fluid Required (l/day) Per physician d/t renal failure Problem/Etiology/Signs/Symptoms Increased nutritional needs related to metabolic demands as evidenced by estimated nutritional requirements for wound healing and CA. *ongoing Expected Outcomes/Goals -Monitor advancement of diet, appetite and PO intakes w/ goal of pt meeting at least 75% of estimated nutritional needs, labs trending WNL, normal GI function, and skin integrity/wt maintenance. Dietitian Recommendations * Recommend Full Liquid CCHO diet w/ Glucerna TID. (ONS will provide additional 660 kcal and 30 gm protein daily) * Encourage PO intake. * Consider advance diet to CCHO, 2gm Na w/ Glucerna TID if/when medically appropriate. Follow Up High Risk: F/U in 2-3days
--- NOTE | 2019-05-06 10:30 | NUR ---
RN ROUNDS: PATIENT IS AWAKE AND ALERT x3. PATIENT IS WATCHING TELEVISION WHILE LAYING DOWN IN BED. PATIENT DENIES ANY PAIN AT THE MOMENT. NO SIGNS OF DISTRESS OR SHORTNESS OF BREATH NOTED. PATIENT IN STABLE CONDITION. WILL CONTINUE TO MONITOR PATIENT FOR ANY CHANGES.
--- NOTE | 2019-05-06 10:35 | NUR ---
Dietitian Recommendations * Recommend Full Liquid CCHO diet w/ Glucerna TID. (ONS will provide additional 660 kcal and 30 gm protein daily) * Encourage PO intake. * Consider advance diet to CCHO, 2gm Na w/ Glucerna TID if/when medically appropriate. Please see Nutrition F/U note for details. MIRACLE, RD
[2019-05-06 11:24] VITALS: BP_SYST 134
[2019-05-06 12:13] VITALS: BP_SYST 133
--- NOTE | 2019-05-06 12:20 | NUR ---
RN ROUNDS: PATIENT IS ASLEEP IN BED. NO SIGNS OF DISTRESS OR SHORTNESS OF BREATH NOTED. PATIENT IN STABLE CONDITION. WILL CONTINUE TO MONITOR PATIENT FOR ANY CHANGES.
--- NOTE | 2019-05-06 12:26 | NUR ---
Discharge Planning: DCP faxed pt referral to Jordana lopez [place] ([phone] p [phone]) DCP to follow up.
--- NOTE | 2019-05-06 14:19 | NUR ---
RN ROUNDS: PATIENT IS LAYING DOWN IN BED ASLEEP. NO SIGNS OF DISTRESS OR SHORTNESS OF BREATH NOTED. PATIENT IN STABLE CONDITION. WILL CONTINUE TO MONITOR PATIENT FOR ANY CHANGES.
[2019-05-06 16:00] VITALS: BP_SYST 137
[2019-05-06] MEDS: cefTRIAXone 1 GM IVPB PREMIX 50 ML IV SCH (18:40)
--- NOTE | 2019-05-06 18:50 | NUR ---
CLOSING NOTES: PATIENT IS AWAKE AND ALERT x3. PATIENT DENIES ANY PAIN AT THE MOMENT.NO SIGNS OF DISTRESS OR SHORTNESS OF BREATH NOTED. IV SITE IS PATENT WITH NO SIGNS OF INFILTRATION. POND CATHETER IS INTACT AND DRAINING BY GRAVITY. PATIENT IN STABLE CONDITION. SAFETY, FALL AND CONTACT PRECAUTIONS ARE IN PLACE. BED LOCKED IN LOWEST POSITION WITH CALL LIGHT IN REACH. WILL ENDORSE PATIENT TO ONCOMING CHIMNEY BUILDER NURSE.
[2019-05-06 21:00] VITALS: BP_SYST 138
--- NOTE | 2019-05-06 22:20 | NUR ---
BSG BLOOD SUGAR ACCU CHECK 109 mg dl patient alert no s/sx of DIABETIC reaction food snacks at the bedside & offered tolerate juice po .
--- NOTE | 2019-05-07 | NUR ---
ULTRAM 50 MG PO administer for general pain control & helpful , patient resting .
[2019-05-07 01:07] VITALS: BP_SYST 142
--- NOTE | 2019-05-07 02:15 | NUR ---
TURNING OFF LOADING WITH PILLOWS comfort measures implemented assist as needed kept clean & dry as needed call sanchez with patient .
--- NOTE | 2019-05-07 04:00 | NUR ---
Hourly Rounding Patient Resting is verbally Responsive call sanchez with patient chest movement symmetrical FALL RISK MEASURES inplace & effective .
--- NOTE | 2019-05-07 04:05 | NUR ---
Patient Resting this hour left sided weakness is noted history of possible stroke 2012 comfort measures implemented patient tolerate .
[2019-05-07 06:56] LABS: TOTAL IRON BIND. CAPACITY 93 ug/dL (250-450)
--- NOTE | 2019-05-07 07:40 | NUR ---
OPENING NOTES: RECEIVED PATIENT FROM TRESTLE BUILDER NURSE. PATIENT IS ASLEEP IN BED. NO SIGNS OF DISTRESS OR SHORTNESS OF BREATH NOTED. IV SITE IS PATENT WITH NO SIGNS OF INFILTRATION. POND IS INTACT AND DRAINING BY GRAVITY. PATIENT IN STABLE CONDITION. SAFETY, FALL, ASPIRATION AND CONTACT PRECAUTIONS ARE IN PLACE. BED LOCKED IN LOWEST POSITION WITH CALL LIGHT IN REACH. WILL CONTINUE TO MONITOR PATIENT FOR ANY CHANGES.
[2019-05-07 07:57] VITALS: BP_SYST 141
[2019-05-07 08:33] LABS: BASOPHILS % (AUTO) 0.5 % (0.0-2.0); EOSINOPHILS # (AUTO) 0.2 K/uL (0.0-0.4); EOSINOPHILS % (AUTO) 2.3 % (0.0-4.0); HEMATOCRIT 28.8 % (36-54); HEMOGLOBIN 9.6 g/dL (14.0-18.0); LYMPHOCYTES # (AUTO) 4.8 K/uL (1.0-5.5); LYMPHOCYTES % (AUTO) 52.9 % (20.5-51.5); MEAN CORPUSCULAR HEMOGLOBIN 30 pg (27-31); MEAN CORPUSCULAR HGB CONC 33 % (32-36); MEAN CORPUSCULAR VOLUME 89 fL (79.0-98.0); MONOCYTES # (AUTO) 0.8 K/uL (0.0-1.0); MONOCYTES % (AUTO) 8.7 % (1.7-9.3); NEUTROPHILS # (AUTO) 3.3 K/uL (1.8-7.7); NEUTROPHILS % (AUTO) 35.6 % (40.0-70.0); PLATELET COUNT (AUTO) 239 K/uL (130-430); RED BLOOD CELL COUNT(AUTO) 3.23 MIL/uL (4.2-6.2); RED CELL DISTRIBUTION WIDTH 18.8 % (9.0-15.0); WHITE BLOOD COUNT (AUTO) 9.2 K/uL (4.8-10.8)
[2019-05-07] MEDS: MUPIROCIN 2% TOPICAL OINTMENT 22 GM NS SCH (09:50)
[2019-05-07] MEDS: PANTOPRAZOLE SODIUM 40 MG TAB PO SCH (09:50)
[2019-05-07] MEDS: DIVALPROEX SODIUM 125 MG CAP.(DEPAKOTE SPRINKLE) PO SCH (09:50)
[2019-05-07] MEDS: amLODIPine BESYLATE 10 MG TABLET PO SCH (09:50)
[2019-05-07] MEDS: VITAMIN B COMPLEX 1 CAP/TAB PO SCH (09:50)
[2019-05-07] MEDS: DOCUSATE SODIUM 100 MG CAPSULE PO SCH (09:51)
[2019-05-07] MEDS: FERROUS SULFATE 325 MG TABLET.DR PO SCH ×2 (09:51→16:26)
[2019-05-07] MEDS: METOPROLOL SUCCINATE 25 MG TAB.SR.24H (TOPROL XL) PO SCH (09:51)
[2019-05-07] MEDS: FUROSEMIDE 40 MG/4 ML VIAL IVP SCH (09:52)
--- NOTE | 2019-05-07 10:00 | NUR ---
RN ROUNDS: PATIENT IS AWAKE AND ALERT x3 IN BED WATCHING TELEVISION. PATIENT DENIES ANY PAIN AT THE MOMENT. NO SIGNS OF DISTRESS OR SHORTNESS OF BREATH NOTED. PATIENT IN STABLE CONDITION. WILL CONTINUE TO MONITOR PATIENT FOR ANY CHANGES.
[2019-05-07 12:10] VITALS: BP_SYST 149
--- NOTE | 2019-05-07 12:30 | NUR ---
RN ROUNDS: PATIENT IS AWAKE AND ALERT x3 LAYING IN BED WATCHING TELEVISION. PATIENT DENIES ANY PAIN AT THE MOMENT. NO SIGNS OF DISTRESS OR SHORTNESS OF BREATH NOTED. PATIENT IN STABLE CONDITION. WILL CONTINUE TO MONITOR PATIENT FOR ANY CHANGES.
--- NOTE | 2019-05-07 14:56 | NUR ---
DC Planning: Per Jordana : the patient is accepted. She will call nursing station to give bed assignment for after 7 pm admission. >> Booked with [facility], BLS transfer # [phone], on Will Call status. DC package delivered to [facility] unit. ROSALIA Nolasco/Candy made aware.
--- NOTE | 2019-05-07 16:10 | NUR ---
RN ROUNDS: PATIENT IS AWAKE AND ALERT x3 LAYING IN BED WATCHING TELEVISION. PATIENT DENIES ANY PAIN. NO SIGNS OF DISTRESS OR SHORTNESS OF BREATH NOTED. PATIENT IN STABLE CONDITION. WILL CONTINUE TO MONITOR PATIENT FOR ANY CHANGES.
[2019-05-07 16:31] VITALS: BP_SYST 138
[2019-05-07] MEDS: cefTRIAXone 1 GM IVPB PREMIX 50 ML IV SCH (18:00)
--- NOTE | 2019-05-07 18:24 | NUR ---
CLOSING NOTES: PATIENT IS AWAKE, VERBAL AND ALERT x3. PATIENT DENIES ANY PAIN AT THE MOMENT. NO SIGNS OF DISTRESS OR SHORTNESS OF BREATH NOTED. IV SITE IS PATENT WITH NO SIGNS OF INFILTRATION. POND IS INTACT AND DRAINING BY GRAVITY. PATIENT IN STABLE CONDITION. SAFETY, FALL, ASPIRATION AND CONTACT PRECAUTIONS ARE IN PLACE. BED LOCKED IN LOWEST POSITION WITH CALL LIGHT IN REACH. WILL ENDORSE PATIENT TO ONCOMING HOT STRIP MILL SUPERVISOR NURSE.
--- NOTE | 2019-05-07 18:59 | NUR ---
REPORT REPORT GIVEN TO SHIMA AT [facility], , PT GOING TO ROOM 311C.
--- NOTE | 2019-05-07 19:30 | NUR ---
Opening notes Received report. Patient resting in bed. No signs of distress noted. Breathing even and unlabored. IV patent and intact, no signs of infiltration noted. VSS. Jean catheter in place, draining yellow urine. Patient awaiting for ambulance for transfer. Call light with the patient. Safety precautions in place.
[2019-05-07 20:05] VITALS: BP_SYST 135
--- NOTE | 2019-05-07 20:45 | NUR ---
D/C Patient Patient given medication reconciliation form and D/C instructions. Exit Care provided. Patient verbalized understanding. MD discussed with patient the results and treatment provided. Patient in stable condition, ID band removed. Patient to be discharged with Jean catheter and Right Foot 20 gauge. Patient educated on pain management. All belongings sent with patient.
[2019-05-08 14:06] LABS: FOLATE (FOLIC ACID) >20.0 ng/mL (>3.0)
[2019-05-09 07:19] LABS: FERRITIN 1341 ng/mL (30-400)
== END 2019-05-07 20:45 | DRG 280 ==
LOC: SED 11:35 → STU 17:38
PROVIDERS: ADMIT Internal Medicine; ATTEND Internal Medicine
PROC: 30233N1 Transfusion of Nonautologous Red Blood Cells into Peripheral Vein, Percutaneous Approach (ICD-10-PCS; principal; 2019-05-03)
DX: I21.4 Non-ST elevation (NSTEMI) myocardial infarction (principal); E43 Unspecified severe protein-calorie malnutrition; I50.21 Acute systolic (congestive) heart failure; I13.0 Hypertensive heart and chronic kidney disease with heart failure and stage 1 through stage 4 chronic kidney disease, or unspecified chronic kidney disease; N39.0 Urinary tract infection, site not specified; I69.354 Hemiplegia and hemiparesis following cerebral infarction affecting left non-dominant side; R64 Cachexia; L89.151 Pressure ulcer of sacral region, stage 1; D50.9 Iron deficiency anemia, unspecified; N18.3 Chronic kidney disease, stage 3 (moderate); N48.5 Ulcer of penis; N49.2 Inflammatory disorders of scrotum; B96.20 Unspecified Escherichia coli [E. coli] as the cause of diseases classified elsewhere; D63.8 Anemia in other chronic diseases classified elsewhere; E11.22 Type 2 diabetes mellitus with diabetic chronic kidney disease; F03.90 Unspecified dementia, unspecified severity, without behavioral disturbance, psychotic disturbance, mood disturbance, and anxiety; I25.10 Atherosclerotic heart disease of native coronary artery without angina pectoris; N40.0 Benign prostatic hyperplasia without lower urinary tract symptoms; Z79.01 Long term (current) use of anticoagulants; Z79.4 Long term (current) use of insulin; Q54.9 Hypospadias, unspecified; Z85.6 Personal history of leukemia; Z87.440 Personal history of urinary (tract) infections; Z74.01 Bed confinement status; Z79.899 Other long term (current) drug therapy; Z68.23 Body mass index [BMI] 23.0-23.9, adult
CPT/HCPCS: 36415; 71045; 80048; 80053; 80061; 81000-TC; 82272; 82607; 82728; 82746; 82962; 83010; 83540-TC; 83550-TC; 83880; 84443-TC; 84484; 85025; 85044-TC; 85610-TC; 85730-TC; 86886; 86900; 86901; 86920; 87081; 87086; 87186-TC; 93005; 93306; 96360; 99285; G0378; J0696; J1644; J1815; J1940; J7030; P9021

== ENCOUNTER 2019-06-30 14:51 | Inpatient (IN) | payer OTHER ==
[~2019-06-30] VITALS: Ht 185.4 cm; Wt 76.2 kg
[~2019-06-30 14:51] MED LIST: ACET325T53 PO; DARB60VI IJ; DIVA250T PO; DOCU-144 PO; FERR140T2 PO; HYDR-3917 PO; LORA-259 PO; METO-540 PO; NOR10 PO; RIVA15TA PO; SSREG SUBCUT; TRAMADOL PO; VITA1CAP PO
[2019-06-30 14:56] VITALS: BP_SYST 126
[2019-06-30 16:05] LABS: BASOPHILS % (AUTO) 0.1 % (0.0-2.0); EOSINOPHILS % (AUTO) 0.3 % (0.0-4.0); HEMATOCRIT 26.6 % (36-54); HEMOGLOBIN 8.8 g/dL (14.0-18.0); LYMPHOCYTES # (AUTO) 4.2 K/uL (1.0-5.5); LYMPHOCYTES % (AUTO) 29.1 % (20.5-51.5); MEAN CORPUSCULAR HEMOGLOBIN 31 pg (27-31); MEAN CORPUSCULAR HGB CONC 33 % (32-36); MEAN CORPUSCULAR VOLUME 94 fL (79.0-98.0); MONOCYTES # (AUTO) 0.6 K/uL (0.0-1.0); MONOCYTES % (AUTO) 4.1 % (1.7-9.3); NEUTROPHILS # (AUTO) 9.6 K/uL (1.8-7.7); NEUTROPHILS % (AUTO) 66.4 % (40.0-70.0); PLATELET COUNT (AUTO) 200 K/uL (130-430); RED BLOOD CELL COUNT(AUTO) 2.83 MIL/uL (4.2-6.2); RED CELL DISTRIBUTION WIDTH 18.1 % (9.0-15.0); WHITE BLOOD COUNT (AUTO) 14.4 K/uL (4.8-10.8)
[2019-06-30 16:16] LABS: ANION GAP 4 (5-15); CHLORIDE 103 mmol/L (98-107); CREATININE 4.43 mg/dL (0.55-1.30); GLUCOSE 112 mg/dL (70-99); POTASSIUM 3.9 mmol/L (3.5-5.1); SODIUM SERUM 131 mmol/L (136-145); UREA NITROGEN, BLOOD 72 mg/dL (8-21)
[2019-06-30 16:22] LABS: ALANINE AMINOTRANSFERASE 18 U/L (12-78); ALBUMIN 2.7 g/dL (3.4-4.8); ASPARTATE AMINOTRANSFERASE 16 U/L (10-37); LIPASE 120 U/L (73-393); TOTAL BILIRUBIN 0.4 mg/dL (0.0-1.0)
[2019-06-30 16:58] LABS: BILIRUBIN,URINE NEGATIVE (NEGATIVE); BLOOD, URINE 1+ (NEGATIVE); CLARITY/URINE CLOUDY (CLEAR); COLOR,URINE YELLOW (YELLOW); GLUCOSE,URINE NEGATIVE (NEGATIVE); KETONES,URINE NEGATIVE (NEGATIVE); LEUKOCYTE ESTERASE ,URINE 2+ (NEGATIVE); NITRITE, URINE NEGATIVE (NEGATIVE); PROTEIN URINE 3+ (NEGATIVE); UROBILINOGEN,URINE 0.2 (0.2-1.0)
[2019-06-30 17:14] LABS: BACTERIA,URINE MANY /HPF (None Seen); COARSE GRANULAR CASTS,URINE 0-10 /LPF (None Seen); MUCUS,URINE None Seen /LPF (None Seen); URINE AMORPHOUS URATE 2+ /HPF (None Seen); WBC,URINE >100 /HPF (0-3); YEAST,URINE Many /HPF (None Seen)
[2019-06-30] MEDS ORDERED: NACL 0.9% 1,000 ML IV ONE (17:45)
[2019-06-30] MEDS ORDERED: LEVOFLOXACIN 500 MG/D5W 100 ML IV ONE (17:45)
[2019-06-30] MEDS ORDERED: PIPERACILLIN/TAZO 3.375 GM in NS 50 ML IV SCH (18:00)
[2019-06-30] MEDS ORDERED: ZINC500P17 MC (18:15)
[2019-06-30] MEDS ORDERED: CRAN500T2 PO (18:15)
[2019-06-30] MEDS ORDERED: MULT-1117 PO (18:15)
[2019-06-30] MEDS ORDERED: TRAM50TA2 PO (18:15)
[2019-06-30] MEDS ORDERED: ASCO500T20 PO (18:15)
[2019-06-30] MEDS ORDERED: PRO40 PO (18:15)
[2019-06-30] MEDS ORDERED: AMIN30LI2 PO (18:15)
[2019-06-30 19:41] VITALS: BP_SYST 150
[2019-06-30] MEDS ORDERED: VANCOMYCIN HCL 1 GM/NS PREMIX 250 ML IV ONE (20:00)
[2019-06-30] MEDS: 0.45% NACL 1,000 ML IV SCH (20:17)
[2019-06-30] MEDS ORDERED: VANCOMYCIN HCL 1000 MG/VIAL IV ONE (21:26)
[2019-06-30] MEDS ORDERED: PIPERACILLIN/TAZOBACTAM 2.25 GM VIAL IV ONE (21:27)
[2019-06-30] MEDS: ZOSYN (PIPERACILLIN/TAZO) 2.25 GM in DEX-ISO (50ml) IV SCH (21:40)
[2019-07-01 02:39] VITALS: BP_SYST 148
[2019-07-01] MEDS: 0.45% NACL 1,000 ML IV SCH ×3 (03:00→17:14)
[2019-07-01] MEDS: ZOSYN (PIPERACILLIN/TAZO) 2.25 GM in DEX-ISO (50ml) IV SCH ×3 (05:01→21:02)
[2019-07-01 07:36] LABS: BASOPHILS % (AUTO) 0.1 % (0.0-2.0); EOSINOPHILS # (AUTO) 0.1 K/uL (0.0-0.4); EOSINOPHILS % (AUTO) 0.5 % (0.0-4.0); HEMATOCRIT 24.5 % (36-54); HEMOGLOBIN 8.3 g/dL (14.0-18.0); LYMPHOCYTES # (AUTO) 5.3 K/uL (1.0-5.5); LYMPHOCYTES % (AUTO) 40.1 % (20.5-51.5); MEAN CORPUSCULAR HEMOGLOBIN 32 pg (27-31); MEAN CORPUSCULAR HGB CONC 34 % (32-36); MEAN CORPUSCULAR VOLUME 93 fL (79.0-98.0); MONOCYTES # (AUTO) 0.6 K/uL (0.0-1.0); MONOCYTES % (AUTO) 4.5 % (1.7-9.3); NEUTROPHILS # (AUTO) 7.2 K/uL (1.8-7.7); NEUTROPHILS % (AUTO) 54.8 % (40.0-70.0); PLATELET COUNT (AUTO) 189 K/uL (130-430); RED BLOOD CELL COUNT(AUTO) 2.64 MIL/uL (4.2-6.2); RED CELL DISTRIBUTION WIDTH 17.8 % (9.0-15.0); WHITE BLOOD COUNT (AUTO) 13.2 K/uL (4.8-10.8)
[2019-07-01 07:55] LABS: ALANINE AMINOTRANSFERASE 14 U/L (12-78); ALBUMIN 2.3 g/dL (3.4-4.8); ANION GAP 6 (5-15); ASPARTATE AMINOTRANSFERASE 17 U/L (10-37); CHLORIDE 104 mmol/L (98-107); CREATININE 4.28 mg/dL (0.55-1.30); GLUCOSE 88 mg/dL (70-99); POTASSIUM 3.8 mmol/L (3.5-5.1); SODIUM SERUM 133 mmol/L (136-145); TOTAL BILIRUBIN 0.4 mg/dL (0.0-1.0); UREA NITROGEN, BLOOD 69 mg/dL (8-21)
[2019-07-01 08:03] LABS: CALCIUM 12.5 mg/dL (8.4-11.0)
[2019-07-01 08:46] VITALS: BP_SYST 154
[2019-07-01 11:23] VITALS: BP_SYST 142
[2019-07-01] MEDS ORDERED: FLUCONAZOLE 100 MG TABLET (DIFLUCAN) PO ONE (11:30)
[2019-07-01 11:57] VITALS: BP_SYST 152
[2019-07-01 15:33] VITALS: BP_SYST 142
[2019-07-01] MEDS ORDERED: amLODIPine BESYLATE 10 MG TABLET PO ONE (15:45)
[2019-07-01] MEDS ORDERED: PANTOPRAZOLE SODIUM 40 MG TAB PO ONE (15:45)
[2019-07-01] MEDS ORDERED: DOCUSATE SODIUM 100 MG/10 ML UDC PO ONE (15:45)
[2019-07-01] MEDS ORDERED: METOPROLOL SUCCINATE 25 MG TAB.SR.24H (TOPROL XL) PO ONE (15:45)
[2019-07-01] MEDS ORDERED: CALCITONIN SALMON,SYNTHETIC 3.7 ML SPRAY.PUMP NS ONE (16:00)
[2019-07-01] MEDS ORDERED: MINERAL OIL 133 ML ENEMA RC ONE (16:30)
[2019-07-01 20:50] VITALS: BP_SYST 138
[2019-07-01] MEDS: DOCUSATE SODIUM 100 MG/10 ML UDC PO SCH (20:54)
[2019-07-01 21:11] LABS: URINE SODIUM, RANDOM 35 mmol/L (40-220)
[2019-07-02] MEDS: 0.45% NACL 1,000 ML IV SCH ×3 (03:06→22:39)
[2019-07-02 03:09] VITALS: BP_SYST 157
[2019-07-02] MEDS: ZOSYN (PIPERACILLIN/TAZO) 2.25 GM in DEX-ISO (50ml) IV SCH ×3 (05:02→22:38)
[2019-07-02 07:18] LABS: BASOPHILS % (AUTO) 0.3 % (0.0-2.0); EOSINOPHILS # (AUTO) 0.2 K/uL (0.0-0.4); EOSINOPHILS % (AUTO) 1.9 % (0.0-4.0); HEMATOCRIT 23.2 % (36-54); HEMOGLOBIN 7.9 g/dL (14.0-18.0); LYMPHOCYTES # (AUTO) 3.8 K/uL (1.0-5.5); LYMPHOCYTES % (AUTO) 43.1 % (20.5-51.5); MEAN CORPUSCULAR HEMOGLOBIN 32 pg (27-31); MEAN CORPUSCULAR HGB CONC 34 % (32-36); MEAN CORPUSCULAR VOLUME 94 fL (79.0-98.0); MONOCYTES # (AUTO) 0.5 K/uL (0.0-1.0); MONOCYTES % (AUTO) 5.9 % (1.7-9.3); NEUTROPHILS # (AUTO) 4.3 K/uL (1.8-7.7); NEUTROPHILS % (AUTO) 48.8 % (40.0-70.0); PLATELET COUNT (AUTO) 154 K/uL (130-430); RED BLOOD CELL COUNT(AUTO) 2.47 MIL/uL (4.2-6.2); RED CELL DISTRIBUTION WIDTH 17.7 % (9.0-15.0)
[2019-07-02 07:27] LABS: ALANINE AMINOTRANSFERASE 9 U/L (12-78); ANION GAP 6 (5-15); ASPARTATE AMINOTRANSFERASE 14 U/L (10-37); CALCIUM 11.7 mg/dL (8.4-11.0); CHLORIDE 102 mmol/L (98-107); CREATININE 4.11 mg/dL (0.55-1.30); GLUCOSE 84 mg/dL (70-99); PHOSPHORUS 4.1 mg/dL (2.7-4.5); POTASSIUM 3.6 mmol/L (3.5-5.1); SODIUM SERUM 130 mmol/L (136-145); TOTAL BILIRUBIN 0.3 mg/dL (0.0-1.0); UREA NITROGEN, BLOOD 62 mg/dL (8-21)
[2019-07-02 07:42] LABS: WHITE BLOOD COUNT (AUTO) 8.8 K/uL (4.8-10.8)
[2019-07-02 08:07] LABS: URIC ACID 6.9 mg/dL (2.4-7.0)
[2019-07-02 08:26] VITALS: BP_SYST 152
[2019-07-02] MEDS: DOCUSATE SODIUM 100 MG/10 ML UDC PO SCH ×5 (08:49→20:16)
[2019-07-02] MEDS: METOPROLOL SUCCINATE 25 MG TAB.SR.24H (TOPROL XL) PO SCH (08:51)
[2019-07-02] MEDS: FLUCONAZOLE 100 MG TABLET (DIFLUCAN) PO SCH (08:51)
[2019-07-02] MEDS: PANTOPRAZOLE SODIUM 40 MG TAB PO SCH (08:51)
[2019-07-02] MEDS: amLODIPine BESYLATE 10 MG TABLET PO SCH (08:52)
[2019-07-02] MEDS ORDERED: CALCITONIN SALMON,SYNTHETIC 3.7 ML SPRAY.PUMP NS SCH (09:00)
[2019-07-02] MEDS ORDERED: FLUCONAZOLE 100 MG TABLET (DIFLUCAN) PO SCH (09:00)
[2019-07-02 12:12] VITALS: BP_SYST 143
[2019-07-02 16:17] VITALS: BP_SYST 148
[2019-07-02 19:57] VITALS: BP_SYST 147
[2019-07-02] MEDS: DEXAMETHASONE SOD PHOSPHATE 4 MG/ML VIAL IVP SCH (20:15)
[2019-07-02] MEDS ORDERED: VANCOMYCIN HCL 500 MG in NS 100 ML IV SCH (21:00)
[2019-07-02] MEDS: CALCITONIN SALMON,SYNTHETIC 200 UNITS/ML VIAL IM SCH (21:00)
[2019-07-03 01:59] VITALS: BP_SYST 147
[2019-07-03 07:19] LABS: BASOPHILS % (AUTO) 0.1 % (0.0-2.0); EOSINOPHILS % (AUTO) 0.1 % (0.0-4.0); HEMATOCRIT 25.3 % (36-54); HEMOGLOBIN 8.6 g/dL (14.0-18.0); LYMPHOCYTES % (AUTO) 49.7 % (20.5-51.5); MEAN CORPUSCULAR HEMOGLOBIN 32 pg (27-31); MEAN CORPUSCULAR HGB CONC 34 % (32-36); MEAN CORPUSCULAR VOLUME 94 fL (79.0-98.0); MONOCYTES # (AUTO) 0.1 K/uL (0.0-1.0); MONOCYTES % (AUTO) 1.5 % (1.7-9.3); NEUTROPHILS # (AUTO) 3.9 K/uL (1.8-7.7); NEUTROPHILS % (AUTO) 48.6 % (40.0-70.0); PLATELET COUNT (AUTO) 179 K/uL (130-430); RED CELL DISTRIBUTION WIDTH 17.8 % (9.0-15.0); WHITE BLOOD COUNT (AUTO) 8.1 K/uL (4.8-10.8)
[2019-07-03 07:20] LABS: ANION GAP 6 (5-15); CALCIUM 10.9 mg/dL (8.4-11.0); CHLORIDE 100 mmol/L (98-107); CREATININE 3.97 mg/dL (0.55-1.30); GLUCOSE 121 mg/dL (70-99); POTASSIUM 3.8 mmol/L (3.5-5.1); SODIUM SERUM 124 mmol/L (136-145); UREA NITROGEN, BLOOD 53 mg/dL (8-21)
[2019-07-03 08:16] LABS: CREATININE, URINE 44.9 mg/dL (Not Estab.)
[2019-07-03 08:23] VITALS: BP_SYST 157
[2019-07-03] MEDS ORDERED: cefTRIAXone 1 GM in D5W 50 ML IV SCH (09:00)
[2019-07-03] MEDS: FLUCONAZOLE 100 MG TABLET (DIFLUCAN) PO SCH (09:03)
[2019-07-03] MEDS: CALCITONIN SALMON,SYNTHETIC 200 UNITS/ML VIAL IM SCH ×2 (09:03→20:28)
[2019-07-03] MEDS: PANTOPRAZOLE SODIUM 40 MG TAB PO SCH (09:03)
[2019-07-03] MEDS: DOCUSATE SODIUM 100 MG/10 ML UDC PO SCH ×3 (09:03→20:28)
[2019-07-03] MEDS: METOPROLOL SUCCINATE 25 MG TAB.SR.24H (TOPROL XL) PO SCH (09:04)
[2019-07-03] MEDS: amLODIPine BESYLATE 10 MG TABLET PO SCH (09:05)
[2019-07-03] MEDS: DEXAMETHASONE SOD PHOSPHATE 4 MG/ML VIAL IVP SCH ×2 (09:05→20:28)
[2019-07-03 09:14] LABS: FREE KAPPA LIGHT CHAIN SERUM 71.8 mg/L (3.3-19.4); FREE LAMBDA LIGHT CHAIN SERUM 27.6 mg/L (5.7-26.3)
[2019-07-03] MEDS: 0.45% NACL 1,000 ML IV SCH (11:46)
[2019-07-03 12:29] VITALS: BP_SYST 161
[2019-07-03 13:08] LABS: A/G RATIO 0.5 (0.7-1.7); ALPHA-1-GLOBULIN 0.3 g/dL (0.0-0.4); ALPHA-2-GLOBULIN 0.8 g/dL (0.4-1.0); BETA GLOBULIN 0.8 g/dL (0.7-1.3); GAMMA GLOBULIN 4.2 g/dL (0.4-1.8); GLOBULIN, TOTAL 6.1 g/dL (2.2-3.9); M-SPIKE 3.8 g/dL (Not Observed)
[2019-07-03 16:11] VITALS: BP_SYST 150
[2019-07-03] MEDS ORDERED: NACL 0.9% 1,000 ML IV SCH (17:30)
[2019-07-03 19:55] VITALS: BP_SYST 138
[2019-07-04 14:46] LABS: KAPPA & LAMBDA LT CHAIN RATIO 2.6 (0.26-1.65)
[2019-07-04 15:00] LABS: MICROALBUMIN URINE RANDOM 1641.3 ug/ml (NOT ESTABLISHED); MICROALBUMIN/CREAT RATIO, UR 3655.5 MG/G CRE (0.0-30.0)
[2019-07-04 15:02] LABS: ALBUMIN, UR 39.8; ALPHA-1-GLOBULIN, UR 6.2; ALPHA-2-GLOBULIN, UR 5.4; BETA GLOBULIN, UR 12.3; GAMMA GLOBULIN, UR 36.3
== END 2019-07-03 21:19 | DRG 871 ==
LOC: SED 14:51 → STU 18:00
PROVIDERS: ADMIT Internal Medicine; ATTEND Internal Medicine
DX: A41.9 Sepsis, unspecified organism (principal); S72.002A Fracture of unspecified part of neck of left femur, initial encounter for closed fracture; E43 Unspecified severe protein-calorie malnutrition; N17.9 Acute kidney failure, unspecified; B37.49 Other urogenital candidiasis; C90.00 Multiple myeloma not having achieved remission; N18.4 Chronic kidney disease, stage 4 (severe); N10 Acute pyelonephritis; I12.9 Hypertensive chronic kidney disease with stage 1 through stage 4 chronic kidney disease, or unspecified chronic kidney disease; B96.20 Unspecified Escherichia coli [E. coli] as the cause of diseases classified elsewhere; D63.8 Anemia in other chronic diseases classified elsewhere; E11.22 Type 2 diabetes mellitus with diabetic chronic kidney disease; E83.52 Hypercalcemia; E86.0 Dehydration; F03.90 Unspecified dementia, unspecified severity, without behavioral disturbance, psychotic disturbance, mood disturbance, and anxiety; I25.10 Atherosclerotic heart disease of native coronary artery without angina pectoris; J44.9 Chronic obstructive pulmonary disease, unspecified; K56.41 Fecal impaction; N40.0 Benign prostatic hyperplasia without lower urinary tract symptoms; N48.1 Balanitis; Q54.9 Hypospadias, unspecified; Z86.73 Personal history of transient ischemic attack (TIA), and cerebral infarction without residual deficits; Z68.22 Body mass index [BMI] 22.0-22.9, adult; Z87.891 Personal history of nicotine dependence; Z87.440 Personal history of urinary (tract) infections
CPT/HCPCS: 36415; 71045; 73502; 80048; 80053; 81000-TC; 82043; 82306; 82570; 82570-TC; 82784; 83519; 83690-TC; 83735-TC; 83930-TC; 83970; 84100-TC; 84155; 84165; 84302-TC; 84550-TC; 85025; 86335; 87040-TC; 87086; 87186-TC; 96365; 99285; G0378; J0630; J0696; J1100; J1956; J2543; J3370; J7050; J7060